=== PATIENT | male | born 1980 | race Caucasian/White ===

== ENCOUNTER 2018-04-09 09:36 | Emergency (ER) | payer BC ==
[~2018-04-09] VITALS: Ht 172.7 cm; Wt 102.1 kg
[~2018-04-09 09:36] MED LIST: NAPR220T70 PO
[2018-04-09 09:42] VITALS: BP 137/82
--- NOTE | 2018-04-09 09:52 | PHYS DOC ---
Past History Past Medical History: Kidney Stones Past Surgical History: No Surgical History Smoking: Cigarettes Alcohol Use: Rarely Drug Use: None Adult General Chief Complaint Chief Complaint: FLANK PAIN HPI HPI Patient is a 37-year-old male presents with right flank pain that radiates to the front, similar to previous kidney stone. This particular episode started 2 hours prior to arrival. Patient was seen at an urgent care facility, given an intramuscular injection of an unknown medication which significantly improved his pain. He is here for further evaluation in the urgent care could provide. He reports one episode of nausea and vomiting. No hematuria. No dysuria. Nothing seems to make the discomfort worse. The medication from the urgent care facility made it better[] Review of Systems Review of Systems Constitutional: Denies fever or chills [] Eyes: Denies change in visual acuity, redness, or eye pain [] HENT: Denies nasal congestion or sore throat [] Respiratory: Denies cough or shortness of breath [] Cardiovascular: No chest pain or palpitations[] GI: Denies abdominal pain, nausea, vomiting, bloody stools or diarrhea [] : Denies dysuria or hematuria [] Musculoskeletal: Denies back pain or joint pain [] Integument: Denies rash or skin lesions [] Neurologic: Denies headache, focal weakness or sensory changes [] Endocrine: Denies polyuria or polydipsia [] All other systems were reviewed and found to be within normal limits, except as documented in this note. Allergies Allergies Allergies Coded Allergies Type Severity Reaction Last Updated Verified Sulfa (Sulfonamide Antibiotics) Allergy Unknown 04/23/15 Yes Physical Exam Physical Exam Constitutional: Well developed, well nourished, no acute distress, non-toxic appearance. [] HENT: Normocephalic, atraumatic, bilateral external ears normal, oropharynx moist, no oral exudates, nose normal. [] Eyes: PERRLA, EOMI, conjunctiva normal, no discharge. [] Neck: Normal range of motion, no tenderness, supple, no stridor. [] Cardiovascular:Heart rate regular rhythm, no murmur [] Lungs & Thorax: Bilateral breath sounds clear to auscultation [] Abdomen: Bowel sounds normal, soft, no tenderness, no masses, no pulsatile masses. [] Skin: Warm, dry, no erythema, no rash. [] Back: No tenderness, mild right-sided costovertebral angle tenderness. [] Extremities: No tenderness, no cyanosis, no clubbing, ROM intact, no edema. [] Neurologic: Alert and oriented X 3, normal motor function, normal sensory function, no focal deficits noted. [] Psychologic: Affect normal, judgement normal, mood normal. [] EKG EKG [] Radiology/Procedures Radiology/Procedures ndication:RT FLANK PAIN TECHNIQUE: CT abdomen and pelvis without IV contrast with multiplanar reformats. COMPARISON: 04/23/2015 FINDINGS: Limited evaluation of solid abdominal and pelvic organs due to lack of IV contrast. Heart is normal in size. No pericardial or pleural effusion. Clear lung bases. Noncontrast appearance of the liver, spleen, gallbladder, pancreas, adrenals within normal limits. No nephrolithiasis. Obstructing 2 mm stone is seen at the right UVJ causing mild hydronephrosis. No enlarged retroperitoneal or pelvic adenopathy. No free pelvic fluid or ascites. Small bilateral fat-containing inguinal hernia. No bowel obstruction. Normal appendix. The prostate and seminal vesicles show no large mass. Urinary bladder is decompressed. No suspicious bony lesion. IMPRESSION: Limited evaluation of solid abdominal and pelvic organs due to lack of IV contrast. Obstructing 2 mm stone in the right UVJ. Electronically signed by: Severo Burkett DO (04/09/2018 10:31 AM) [id number] [] Course & Med Decision Making Course & Med Decision Making Pertinent Labs and Imaging studies reviewed. (See chart for details) ED course: Patient arrived, was placed in bed, and tolerated exam well. Was transported to and from CT with any complications. After return of the lab and CT findings, these were discussed with the patient who voiced understanding. All questions were answered. Patient was discharged in improved condition. Medical decision making: There is no evidence of renal failure, no evidence of an infection, no by mouth intolerance, no intractable pain.[] Dragon Disclaimer Dragon Disclaimer This electronic medical record was generated, in whole or in part, using a voice recognition dictation system. Departure Departure: Impression: Primary Impression: Kidney stone on right side Disposition: HOME, SELF-CARE Condition: IMPROVED Referrals: MOSES KAN MD (PCP) Follow-up in 2 days Patient Instructions: Diet for Kidney Stones, Kidney Stones Additional Instructions: Follow-up with your regular doctor in 2 days. Drink plenty of fluids. Return to the ER if uncontrolled pain, you develop a fever for 101, or any other concerns. Scripts Tamsulosin Hcl (FLOMAX) 0.4 Mg Cap.er.24h 0.4 MG PO HS for kidney stone for 10 Days, #10 CAP.SR Prov: DM TOMLIN DO 04/09/18 Ondansetron Hcl (ZOFRAN) 4 Mg Tablet 1 TAB PO Q6HRS for nausea or vomiting, #20 TAB Prov: DM TOMLIN DO 04/09/18 Hydrocodone Bit/Acetaminophen (NORCO 5-325 TABLET) 1 Each Tablet 1-2 TAB PO Q4-6HRS for severe pain, #20 TAB Prov: DM TOMLIN DO 04/09/18 Meloxicam (MELOXICAM) 7.5 Mg Tablet 7.5 MG PO DAILY for PAIN, #20 TAB Prov: DM TOMLIN DO 04/09/18 DM TOMLIN DO Apr 09, 2018 09:52
[2018-04-09] MEDS ORDERED: IV NORMAL SALINE 1,000ML 1,000 ML IV SCH (10:00)
[2018-04-09 10:19] LABS: BASO # 0.1 x10^3/uL (0.0-0.2); BASO % 0 % (0-3); EOS % 0 % (0-3); HEMATOCRIT 46.4 % (39.0-53.0); HEMOGLOBIN 15.8 g/dL (13.0-17.5); LYMPH # 0.7 x10^3/uL (1.0-4.8); LYMPH % 5 % (24-48); MEAN CORPUSCULAR HEMOGLOBIN 30 pg (25-35); MEAN CORPUSCULAR HGB CONC 34 g/dL (31-37); MEAN CORPUSCULAR VOLUME 88 fL (79-100); MONO # 0.5 x10^3/uL (0.0-1.1); MONO % 4 % (0-9); NEUT # 11.4 x10^3uL (1.8-7.7); NEUT % 90 % (31-73); PLATELET COUNT 248 x10^3/uL (140-400); RED BLOOD COUNT 5.28 x10^6/uL (4.30-5.70); RED CELL DISTRIBUTION WIDTH 13.8 % (11.5-14.5); WHITE BLOOD COUNT 12.7 x10^3/uL (4.0-11.0)
[2018-04-09 10:30] LABS: ALBUMIN 4.1 g/dL (3.4-5.0); ALBUMIN/GLOBULIN RATIO 1.2 (1.0-1.7); CALCIUM 8.6 mg/dL (8.5-10.1); CREATININE 1.2 mg/dL (0.7-1.3); GFR 68.5; POTASSIUM 4.2 mmol/L (3.5-5.1); TOTAL BILIRUBIN 0.3 mg/dL (0.2-1.0); TOTAL PROTEIN 7.6 g/dL (6.4-8.2)
--- NOTE | 2018-04-09 10:33 | RAD ---
PQRS Compliance statement: One or more of the following individualized dose reduction techniques were utilized for this examination: 1. Automated exposure control. 2. Adjustment of the mA and/or kV according to patient size. 3. Use of iterative reconstruction technique. Indication:RT FLANK PAIN TECHNIQUE: CT abdomen and pelvis without IV contrast with multiplanar reformats. COMPARISON: 04/23/2015 FINDINGS: Limited evaluation of solid abdominal and pelvic organs due to lack of IV contrast. Heart is normal in size. No pericardial or pleural effusion. Clear lung bases. Noncontrast appearance of the liver, spleen, gallbladder, pancreas, adrenals within normal limits. No nephrolithiasis. Obstructing 2 mm stone is seen at the right UVJ causing mild hydronephrosis. No enlarged retroperitoneal or pelvic adenopathy. No free pelvic fluid or ascites. Small bilateral fat-containing inguinal hernia. No bowel obstruction. Normal appendix. The prostate and seminal vesicles show no large mass. Urinary bladder is decompressed. No suspicious bony lesion. IMPRESSION: Limited evaluation of solid abdominal and pelvic organs due to lack of IV contrast. Obstructing 2 mm stone in the right UVJ. Electronically signed by: Severo Burkett DO (04/09/2018 10:31 AM) [id number]
[2018-04-09 10:38] LABS: BACTERIA,URINE 0 /HPF (0-FEW); BILIRUBIN,URINE NEG (NEG); CLARITY,URINE HAZY; COLOR,URINE AMBER; GLUCOSE,URINE NEG (NEG); NITRITE,URINE NEG (NEG); SQUAMOUS EPITHELIAL CELL,UR OCC /LPF; UROBILINOGEN,URINE 0.2 mg/dL (0.2 mg/dL); WBC,URINE 0 /HPF (0-4)
[2018-04-09] MEDS ORDERED: TAMS0.4C97 PO (11:34)
[2018-04-09] MEDS ORDERED: HYDR-3165 PO (11:34)
[2018-04-09] MEDS ORDERED: ONDA4TAB7 PO (11:34)
[2018-04-09] MEDS ORDERED: MELO7.5T29 PO (11:34)
[2018-04-09] MEDS ORDERED: traMADol 50 MG TABLET ONE (11:37)
[2018-04-09] MEDS ORDERED: traMADol 50 MG TABLET PO ONE (11:45)
== END 2018-04-09 11:49 | disposition home or self-care (01) ==
LOC: ER 09:36
DX: N13.2 Hydronephrosis with renal and ureteral calculous obstruction (principal); R11.2 Nausea with vomiting, unspecified; F17.210 Nicotine dependence, cigarettes, uncomplicated; Z87.442 Personal history of urinary calculi; Z88.2 Allergy status to sulfonamides
CPT/HCPCS: 36415; 74176; 80053; 81001; 83690; 85025; 96360; 99284-25; J7030